=== PATIENT | female | born 1930 | race Caucasian/White ===

== ENCOUNTER → 2017-10-29 | Outpatient (CLI) | payer MEDICARE ==
[~2017-10-29] MED LIST: ETD400T PO; PRESER VISION PO; PROP80CA4 PO; RLX60T PO
--- NOTE | 2017-10-29 15:42 | Diagnostic Imaging Report ---
PROCEDURE: US Thyroid. TECHNIQUE: Multiple real-time grayscale images were obtained of the thyroid in various projections. INDICATION: Lump in the neck. FINDINGS: Right lobe of the thyroid measures 2.8 x 1.5 x 0.9 cm. Left lobe measures 2.7 x 1.4 x 1.3 cm. 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 There is a large complex cystic mass in the isthmus slightly to the left measuring 2.4 x 1.8 x 1.9 cm. This does correspond to the patient's palpable abnormality. No internal vascularity is present. There is a small cyst in lower pole of the left lobe as well, suggestive of a colloid cyst measuring 8 mm x 5 mm. Numerous tiny hypoechoic nodules are noted as well which appear benign. IMPRESSION: Bilateral thyroid nodules. The largest is a complex cystic mass in the isthmus corresponding to the patient's palpable abnormality. Fine-needle aspiration could be performed, if clinically indicated. No other significant abnormality is seen. Dictated by: Dictated on workstation # [id number]
== END ==
LOC: RAD 14:29
DX: E04.2 Nontoxic multinodular goiter (principal)
CPT/HCPCS: 76536